=== PATIENT | male | born 2000 | race Caucasian/White ===

== ENCOUNTER → 2018-03-20 | Outpatient (CLI) | payer BC ==
[~2018-03-20] MED LIST: CITALOPRAM HBR20 M1 PO; CLARITIN10 MG PO; DELTASONE DOSEPA5 MG PO; FLONASE16 GM NS; PROVENTIL,2.5 MG/0.5 IH; PULMICORT180 MICROG IH; TRILEPTAL300 MG PO
== END | disposition home or self-care (01) ==
LOC: CDC 11:11
DX: Z01.810 Encounter for preprocedural cardiovascular examination (principal); E66.01 Morbid (severe) obesity due to excess calories
CPT/HCPCS: 93000

== ENCOUNTER 2018-04-13 22:03 | Inpatient (IN) | payer BC ==
[~2018-04-13] VITALS: Ht 180.3 cm; Wt 188.7 kg
[~2018-04-13 22:03] MED LIST changes: +VENTOLIN HFA18 GM IH; +ZOLOFT50 MG PO
[2018-04-14 06:35] VITALS: BP 126/74
[2018-04-14 12:53] VITALS: BP 141/87
[2018-04-14 15:33] VITALS: BP 141/87
[2018-04-14 18:55] VITALS: BP 138/84
[2018-04-14 23:28] VITALS: BP 134/82
[2018-04-15 03:49] VITALS: BP 140/81
[2018-04-15 06:02] LABS: HEMATOCRIT 43.4 % (38.0-50.0); MCH 27.5 PG (29.0-34.0); MCHC 32.3 G/DL (30.0-36.0); MCV 85.1 FL (86-99); PLATELET COUNT 259 K/uL (156-360); RBC DIS.WIDTH-SD 40.5 % (39-53); WHITE BLOOD COUNT 12.9 K/uL (4.1-10.2)
[2018-04-15 06:28] LABS: CHLORIDE 102 MEQ/L (99-109); CREATININE 0.7 MG/DL (0.6-1.3); GFR ESTIMATE (CALCULATED) > 59 mL/min/ (58.99-99999); GLUCOSE 111 mg/dL (70-99); POTASSIUM 4.7 MEQ/L (3.7-5.4); SODIUM 139 MEQ/L (136-147); UREA NITROGEN (BUN) 11 mg/dL (9-23)
[2018-04-15 07:34] VITALS: BP 153/86
[2018-04-15 11:49] VITALS: BP 146/88
[2018-04-15 15:39] VITALS: BP 145/85
[2018-04-15 20:17] VITALS: BP 140/76
[2018-04-16 00:04] VITALS: BP 135/74
[2018-04-16 03:45] VITALS: BP 138/81
[2018-04-16 06:07] LABS: HEMATOCRIT 45.4 % (38.0-50.0); HEMOGLOBIN 14.7 G/DL (12.5-16.6); MCH 27.2 PG (29.0-34.0); MCHC 32.4 G/DL (30.0-36.0); MCV 83.9 FL (86-99); PLATELET COUNT 272 K/uL (156-360); RBC DIS.WIDTH-CV 12.8 % (11.8-14.6); RBC DIS.WIDTH-SD 39.2 % (39-53); RED BLOOD COUNT 5.41 M/uL (4.00-5.50); WHITE BLOOD COUNT 11.8 K/uL (4.1-10.2)
[2018-04-16 06:23] LABS: CHLORIDE 103 MEQ/L (99-109); CREATININE 0.7 MG/DL (0.6-1.3); GFR ESTIMATE (CALCULATED) > 59 mL/min/ (58.99-99999); GLUCOSE 100 mg/dL (70-99); POTASSIUM 4.4 MEQ/L (3.7-5.4); SODIUM 138 MEQ/L (136-147); UREA NITROGEN (BUN) 7 mg/dL (9-23)
[2018-04-16 07:25] VITALS: BP 170/97
[2018-04-16 08:35] VITALS: BP 142/87
== END 2018-04-16 11:40 | disposition home or self-care (01) | DRG 621 ==
LOC: ENRESERV 22:03 → 2SOUTH 04-14 03:10 → 2EAST 04-14 05:41 → ENRESERV 04-14 10:32 → 2EAST 04-14 12:45 → 2SOUTH 04-14 13:23 → 2EAST 04-16 11:40
PROVIDERS: Surgery
PROC: 0DB64Z3 Excision of Stomach, Percutaneous Endoscopic Approach, Vertical (ICD-10-PCS; principal; 2018-04-14)
DX: E66.01 Morbid (severe) obesity due to excess calories (principal); Z68.43 Body mass index [BMI] 50.0-59.9, adult; R16.0 Hepatomegaly, not elsewhere classified; J45.909 Unspecified asthma, uncomplicated; F41.9 Anxiety disorder, unspecified; Z87.891 Personal history of nicotine dependence
CPT/HCPCS: 80048; 82948; 85027; 86850; 86900; 86901; 88300; C9113; J0330; J1100; J1170; J1644; J1885; J2250; J2405; J2550; J2765; J3010; J3480; J7120; S0074